=== PATIENT | female | born 1980 ===

== ENCOUNTER 2018-11-08 11:20 | Emergency (ER) | payer OTHER ==
[~2018-11-08] VITALS: Ht 154.9 cm; Wt 52.6 kg
== END 2018-11-08 14:52 | disposition home or self-care (01) ==
LOC: ER 11:20
DX: B34.9 Viral infection, unspecified (principal)

== ENCOUNTER 2019-06-15 11:55 | Outpatient (CLI) | payer OTHER | END 2019-06-15 12:02 | disposition home or self-care (01) | LOC: LAB 11:55 | DX: E04.1 Nontoxic single thyroid nodule (principal); E11.9 Type 2 diabetes mellitus without complications; Z00.00 Encounter for general adult medical examination without abnormal findings ==

== ENCOUNTER 2019-12-11 13:53 | Outpatient (CLI) | payer OTHER | END 2019-12-11 15:00 | disposition home or self-care (01) | LOC: LAB 13:53 | PROVIDERS: ATTEND Internal Medicine | DX: E04.1 Nontoxic single thyroid nodule (principal); Z00.00 Encounter for general adult medical examination without abnormal findings; E11.9 Type 2 diabetes mellitus without complications ==

== ENCOUNTER → 2020-01-11 09:54 | Outpatient (CLI) | payer OTHER | END | disposition home or self-care (01) | LOC: LAB 09:54 | PROVIDERS: ATTEND Internal Medicine | DX: Z20.828 Contact with and (suspected) exposure to other viral communicable diseases (principal); Z01.818 Encounter for other preprocedural examination ==

== ENCOUNTER 2020-03-19 12:33 | Outpatient (CLI) | payer OTHER | END 2020-03-19 12:34 | disposition home or self-care (01) | LOC: MAMO-SONO 12:33 | PROVIDERS: ATTEND Obstetrics & Gynecology | DX: Z12.31 Encounter for screening mammogram for malignant neoplasm of breast (principal); N64.59 Other signs and symptoms in breast ==